=== PATIENT | female | born 1970 | race Caucasian/White ===

== ENCOUNTER 2017-08-16 17:25 | Emergency (ER) | payer OTHER ==
[~2017-08-16] VITALS: Ht 154.9 cm; Wt 64.5 kg
[2017-08-16 17:32] VITALS: TEMP 37; Ht 154.9 cm; Wt 64.5 kg
[2017-08-16] MEDS ORDERED: MULT-240 PO (17:55)
[2017-08-16] MEDS ORDERED: CETI10TA84 PO (17:55)
[2017-08-16] MEDS ORDERED: GLIP10TA9 PO (17:55)
[2017-08-16] MEDS ORDERED: MULT-580 PO (17:55)
--- NOTE | 2017-08-16 19:08 | DIAGNOSTIC IMAGING REPORT ---
THORACIC SPINE 3 VIEWS ROUTINE CLINICAL HISTORY: Thoracic spine pain COMPARISON STUDY: No previous studies for comparison. FINDINGS: The paraspinal line is not displaced. There is a minimal upper thoracic spinal curvature convex to the right. There are mild multilevel degenerative changes. No fractures are visualized. No destructive lesions are evident. Suture lines in the left upper quadrant, likely related to a prior gastric bypass. IMPRESSION: Mild multilevel degenerative change. No fractures or destructive lesions identified Electronically signed by: Meliton Tejeda M.D. 08/16/2017 7:06 PM Dictated Date/Time: 08/16/2017 7:06 PM
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
--- NOTE | 2017-08-16 20:02 | DIAGNOSTIC IMAGING REPORT ---
CT HEAD WITHOUT CONTRAST (CT) CLINICAL HISTORY: Severe headache and neck pain COMPARISON STUDY: No previous studies for comparison. TECHNIQUE: Axial CT of the brain is performed from the vertex to the skull base. IV contrast was not administered for this examination. A dose lowering technique was utilized adhering to the principles of ALARA. CT DOSE: FINDINGS: No intra or extra-axial mass lesions are visualized. There is no CT evidence of acute cortical infarction. There is no evidence of midline shift. There is no acute hemorrhage. No calvarial fractures are visualized. There is no evidence of pathologic ventricular dilatation. There is no evidence of acute sinusitis IMPRESSION: No acute intracranial findings Electronically signed by: Meliton Tejeda M.D. 08/16/2017 8:01 PM Dictated Date/Time: 08/16/2017 8:00 PM
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
[2017-08-16] MEDS ORDERED: ACETAMINOPHEN 500 MG TAB PO STA (20:05)
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
[2017-08-16 20:57] VITALS: BP 136/78; PULSE 96; O2SAT 98
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
[2017-08-18 13:03] LABS: ISTAT CREATININE 0.3 mg/dl (0.6-1.3); ISTAT IONIZED CALCIUM 1.23 mmol/l (1.12-1.32); ISTAT POTASSIUM 4.1 mEq/L (3.3-5.0)
== END 2017-08-16 20:58 | disposition home or self-care (01) ==
LOC: C.EDB 17:28 → C.EDD 20:58
DX: S10.93XA Contusion of unspecified part of neck, initial encounter (principal); M54.2 Cervicalgia; R07.81 Pleurodynia; T76.11XA Adult physical abuse, suspected, initial encounter; W50.0XXA Accidental hit or strike by another person, initial encounter; J45.909 Unspecified asthma, uncomplicated; E11.9 Type 2 diabetes mellitus without complications; Z83.3 Family history of diabetes mellitus; Z82.49 Family history of ischemic heart disease and other diseases of the circulatory system; F17.200 Nicotine dependence, unspecified, uncomplicated